=== PATIENT | female | born 1980 ===

== ENCOUNTER 2025-06-17 17:00 | Emergency (ER) | payer OTHER ==
--- NOTE | 2025-06-17 17:26 | ER ---
Nurse's Notes [facility] Name: Jeny Valenzuela Age: 45 yrs Sex: Female : 1980 Arrival Date: 06/17/2025 Time: 17:00 Bed 16 Private MD: Diagnosis: Other hemorrhoids Presentation: 06/17 17:14 Chief complaint: Patient states: two bowel movements today with bright red blood, the me1 2nd worst than the first. Denies pain. Coronavirus screen: Vaccine status: Patient reports being unvaccinated. Ebola Screen: No symptoms or risks identified at this time. Initial Sepsis Screen: Does the patient meet any 2 criteria? HR > 90 bpm. Does the patient have a suspected source of infection? No. Patient's initial sepsis screen is negative. Risk Assessment: Do you want to hurt yourself or someone else? Patient reports no desire to harm self or others. Onset of symptoms was June 17, 2025. 17:14 Method Of Arrival: [place] [facility] 17:14 Acuity: MARLYN 3 me1 Historical: - Allergies: 17:15 No Known Allergies; me1 - PMHx: 17:15 Bipolar disorder; me1 - PSHx: 17:15 None; me1 - Immunization history:: Adult Immunizations up to date. - Infectious Disease History:: Denies. - Social history:: Smoking status: Patient reports the use of cigarette tobacco products, smokes one pack cigarettes per day. Screenin:34 [facility] ED Fall Risk Assessment (Adult) History of falling in the last 3 months, db including since admission No falls in past 3 months (0 pts) Confusion or Disorientation No (0 pts) Intoxicated or Sedated No (0 pts) Impaired Gait No (0 pts) Mobility Assist Device Used No (0 pt) Altered Elimination No (0 pt) Score/Fall Risk Level 0 - 2 = Low Risk Oriented to surroundings, Maintained a safe environment. Abuse screen: Denies threats or abuse. Denies injuries from another. Nutritional screening: No deficits noted. Tuberculosis screening: No symptoms or risk factors identified. Assessment: 17:12 Reassessment: Patient appears in no apparent distress at this time. Patient and/or db family updated on plan of care and expected duration. Pain level reassessed. Patient is alert, oriented x 3, equal unlabored respirations, skin warm/dry/pink. General: Appears in no apparent distress. comfortable, Behavior is calm, cooperative. Neuro: Level of Consciousness is awake, alert, obeys commands, Oriented to person, place, time, situation. Respiratory: Airway is patent Respiratory effort is even, unlabored, Respiratory pattern is regular, symmetrical. GI: Reports bloody stool. 17:34 Pain: Denies pain. db Vital Signs: 17:14 BP 138 / 84; Pulse 90; Resp 17; Temp 98.2; Pulse Ox 97% ; Weight 99.79 kg; Height 5 ft. me1 8 in. ; Pain 0/10; 17:14 Body Mass Index 33.45 (99.79 kg, 172.72 cm) me1 17:14 Pain Scale: Adult ky1 ED Course: 17:06 Patient arrived in ED. ts1 17:07 Mariano Bhakta PA-C is PHCP. cp 17:07 Leona Gonzalez MD is Attending Physician. cp 17:11 Bernie Austin, RN is Primary Nurse. db 17:15 Triage completed. me1 17:15 Arm band placed on Patient placed in an exam room. me1 17:18 Served as a clerk during rectal exam. db 17:25 Trae Metz MD is Referral Physician. sp3 17:34 Patient has correct armband on for positive identification. Bed in low position. Call db light in reach. Side rails up X 1. Provided Education on: DISCHARGE , HOME CARE AND FOLLOWUP. Warm blanket given. 17:34 Patient did not have IV access during this emergency room visit. db Administered Medications: No medications were administered Medication: 17:34 VIS not applicable for this client. db Outcome: 17:25 Discharge ordered by . sp3 17:34 Discharged to home ambulatory, db 17:34 Condition: stable 17:34 Discharge instructions given to patient, Instructed on discharge instructions, follow up and referral plans. 17:36 Patient left the ED. db Signatures: Mariano Bhakta PA-C PA-C cp Patel, Setul, MD MD sp3 Bernie Austin, RN RN db Johanna Yusuf PAS PAS ts1 Erica Dozier RN RN [facility]
--- NOTE | 2025-06-17 17:26 | EDPHYS ---
Physician Documentation [facility] Name: Jeny Valenzuela Age: 45 yrs Sex: Female : 1980 Arrival Date: 06/17/2025 Time: 17:00 Bed 16 Private MD: ED Physician Leona Gonzalez HPI: 06/17 17:22 This 45 yrs old Female presents to ER via Ambulatory with complaints of Bloody Stools. sp3 17:22 45-year-old female with history of bipolar disease presents with 1 day history of stool sp3 with bright red blood on edge for 2 episodes. Patient has had no pain, no diarrhea, no vomiting, no prior episodes, no syncope, no near syncope, no bleeding from elsewhere, she is not on any anticoagulants or antiplatelet agents, and no other symptoms positive on review of systems at this time.. Historical: - Allergies: 17:15 No Known Allergies; me1 - PMHx: 17:15 Bipolar disorder; me1 - PSHx: 17:15 None; me1 - Immunization history:: Adult Immunizations up to date. - Infectious Disease History:: Denies. - Social history:: Smoking status: Patient reports the use of cigarette tobacco products, smokes one pack cigarettes per day. ROS: 17:24 Constitutional: Negative for fever, chills, and weight loss, Eyes: Negative for injury, sp3 pain, redness, and discharge, ENT: Negative for injury, pain, and discharge, Neck: Negative for injury, pain, and swelling, Cardiovascular: Negative for chest pain, palpitations, and edema, Respiratory: Negative for shortness of breath, cough, wheezing, and pleuritic chest pain, Abdomen/GI: Negative for abdominal pain, nausea, vomiting, diarrhea, and constipation, Back: Negative for injury and pain, MS/Extremity: Negative for injury and deformity, Skin: Negative for injury, rash, and discoloration, Neuro: Negative for headache, weakness, numbness, tingling, and seizure, Psych: Negative for depression, anxiety, suicide ideation, homicidal ideation, and hallucinations, Allergy/Immunology: Negative for hives, rash, and allergies, Endocrine: Negative for neck swelling, polydipsia, polyuria, polyphagia, and marked weight changes, Hematologic/Lymphatic: Negative for swollen nodes, abnormal bleeding, and unusual bruising, 17:24 All other systems are negative, Exam: 17:24 Constitutional: This is a well developed, well nourished patient who is awake, alert, sp3 and in no acute distress. Head/Face: Normocephalic, atraumatic. Chest/axilla: Normal chest wall appearance and motion. Nontender with no deformity. No lesions are appreciated. Cardiovascular: Regular rate and rhythm with a normal S1 and S2. No gallops, murmurs, or rubs. Normal PMI, no JVD. No pulse deficits. Respiratory: Lungs have equal breath sounds bilaterally, clear to auscultation and percussion. No rales, rhonchi or wheezes noted. No increased work of breathing, no retractions or nasal flaring. Back: No spinal tenderness. No costovertebral tenderness. Full range of motion. Skin: Warm, dry with normal turgor. Normal color with no rashes, no lesions, and no evidence of cellulitis. MS/ Extremity: Pulses equal, no cyanosis. Neurovascular intact. Full, normal range of motion. Neuro: Awake and alert, GCS 15, oriented to person, place, time, and situation. Cranial nerves II-XII grossly intact. Motor strength 5/5 in all extremities. Sensory grossly intact. Cerebellar exam normal. Normal gait. Psych: Awake, alert, with orientation to person, place and time. Behavior, mood, and affect are within normal limits. 17:24 Abdomen/GI: Abdominal exam negative. Rectal exam demonstrates several external and internal hemorrhoids with active small amounts of bleeding. Patient's vital signs are completely normal. Patient is in no acute distress., Vital Signs: 17:14 BP 138 / 84; Pulse 90; Resp 17; Temp 98.2; Pulse Ox 97% ; Weight 99.79 kg; Height 5 ft. me1 8 in. ; Pain 0/10; 17:14 Body Mass Index 33.45 (99.79 kg, 172.72 cm) me1 17:14 Pain Scale: Adult me1 MDM: 17:08 Medical Screening Exam initiated sp3 17:25 Data reviewed: vital signs, nurses notes. ED course: Patient with external versus sp3 internal hemorrhoids causing mild bleeding. Clinic did not believe patient is having significant GI bleed. We will refer her to outpatient GI for colonoscopy. No other workup indicated in the ER.. Administered Medications: No medications were administered Disposition Summary: 06/17/25 17:25 Discharge Ordered Notes: Location: Home sp3 Condition: Stable sp3 Diagnosis - Other hemorrhoids sp3 Followup: sp3 - With: Trae Metz MD - When: Upon discharge from the Emergency Department - Reason: Recheck today's complaints Discharge Instructions: - Discharge Summary Sheet sp3 - Hemorrhoids sp3 - Nonsurgical Procedures for Hemorrhoids, Care After sp3 Forms: - Medication Reconciliation Form sp3 - Antibiotic Education sp3 - Prescription Opioid Use sp3 - Patient Portal Instructions sp3 - Leadership Thank You Letter sp3 Signatures: Leona Gonzalez MD MD sp3 Erica Dozier RN RN me1
[2025-06-17 17:48] VITALS: BP 138/84; TEMP 98.2; O2SAT 97
== END 2025-06-17 17:36 | disposition home or self-care (01) ==
LOC: ER 17:00
DX: K64.8 Other hemorrhoids (principal)
CPT/HCPCS: 99282